=== PATIENT | male | born 1985 | race Caucasian/White ===

== ENCOUNTER 2018-09-20 10:09 | Day surgery (SDC) | payer BC, OTHER ==
[2018-09-19 08:22] VITALS: BMI 29.2
--- NOTE | 2018-09-20 10:38 | HP ---
History & Physical Update - History History: No Change - Physical Physical: No Change - Assessment Assessment: No Change - Plan Plan: No Change (H & P done on 09/13/18)
[2018-09-20] MEDS ORDERED: BUPIVACAINE HCL/PF 0.5% (5MG/ML) 10 ML VIAL ONE (12:04)
[2018-09-20] MEDS ORDERED: PROPOFOL 20 ML ONE ×2 (12:05→12:33)
[2018-09-20] MEDS ORDERED: MIDAZOLAM HCL 2 MG/2 ML SINGLE DOSE VIAL ONE ×2 (12:05)
[2018-09-20] MEDS ORDERED: ISOSULFAN BLUE 10 MG/ML VIAL SQ ONE (12:30)
[2018-09-20] MEDS ORDERED: ceFAZolin SODIUM 1 GM VIAL ONE (12:40)
[2018-09-20] MEDS ORDERED: ceFAZolin SODIUM 1 GM VIAL IVPB ONE (12:41)
--- NOTE | 2018-09-20 13:44 | OP ---
Operative Note - Note: Operative Date: 09/20/18 Pre-Operative Diagnosis: Pilonidal cyst Operation: Excision of pilonidal cyst Findings: multiple hair pits with one pit containing old hair Post-Operative Diagnosis: Same as Pre-op Surgeon: Jordi Monk Anesthesia: Spinal Specimens Removed: pilonidal cyst Estimated Blood Loss (mls): 5 Operative Report Dictated: Yes
--- NOTE | 2018-09-20 14:08 | OP ---
DATE OF OPERATION: 09/20/2018 PROCEDURE: Excision of pilonidal cyst. PREOPERATIVE DIAGNOSIS: Pilonidal cyst. POSTOPERATIVE DIAGNOSIS: Pilonidal cyst. SURGEON: Jordi Monk MD ANESTHESIA: Spinal. FINDINGS ON PROCEDURE: This is a 33-year-old male who presents with 1-year history of intermittent drainage from pilonidal sinus of the intergluteal fold or aubrie cleft. On initial physical examination, patient has 3 sinuses with uppermost sinus draining seropurulent material. Patient was treated with antibiotics for every episode with temporary relief. So, patient was advised excision of the pilonidal cyst, and consent was obtained after discussing the risks, benefits, and alternatives of the procedure. DESCRIPTION OF PROCEDURE: Patient was brought to the operating room and placed in sitting position. Spinal anesthesia was administered. Patient was then placed in prone position. The operative site was prepped and draped in the usual sterile fashion. The upper and lowermost sinuses were injected with isosulfan blue dye. Using the probe, the lower most sinus was explored, and the tract was noted to direct upwards. The upper most sinus was also probed and was noted to end in a blind tract to the left of the midline. The middle sinus was noted to be obliterated. Afterwards a 5 x 2 cm elliptical incision incorporating the 3 sinuses was made using scalpel blade No. 15. Dissection was carried down towards the deep subcutaneous tissue using the Bovie cautery incorporating the cavity of the pilonidal cyst. The recently infected sinus was noted to contain old hair. After the whole cavity was excised, the specimen was inspected, and the inked cavity was inspected and was noted to be communicating with the upper sinus. The wound was then copiously irrigated with sterile normal saline until the return was clear. A Anthony-Khan No. 7 drain was deployed and exited via separate stab wound and connected to bulb suction. The wound was closed with interrupted nylon 3-0 sutures in vertical mattress fashion. The wound was covered with Xeroform gauze and sterile dressing. Patient was placed in supine position and transferred to the post-anesthesia care unit in satisfactory condition. ESTIMATED BLOOD LOSS: About 5 mL. WOUND CLASS: Clean contaminated. The patient received a gram of Ancef prior to the start of the procedure.. Shanita [id number] MTDD
[2018-09-20] MEDS ORDERED: oxyCODONE HCL 5 MG TABLET PO PRN (14:18)
[2018-09-20] MEDS ORDERED: ONDANSETRON 4 MG/2 ML VIAL IVPUSH PRN (14:18)
[2018-09-20] MEDS ORDERED: LACTATED RINGERS SOLUTION 1,000 ML IV SCH (14:30)
[2018-09-20 15:13] VITALS: TEMP 97.6
[2018-09-20 16:20] VITALS: PULSE 74
[2018-09-20 16:25] VITALS: BP 112/54
--- NOTE | 2018-09-24 14:27 | PATH ---
Surgical Pathology Report Patient Name: RAMON CABELLO [facility]. Rec. #: [id number] /Age/Gender: 1985 (Age: 33) / F Account: [id number] Location: [facility] SURGICAL Taken: 09/20/2018 Received: 09/23/2018 Reported: 09/24/2018 Physicians: Jordi Monk M.D. Specimen(s) Received PILONIDAL CYST Clinical History Pilonidal cyst Final Diagnosis PILONIDAL CYST, EXCISION: INFLAMED PILONIDAL CYST. Electronically Signed Geneva Caldera M.D. Gross Description Received in formalin, labeled "pilonidal cyst" is a segment of skin (3.5 x 0.7cm) with subcutaneous tissue (3.5 x 2.2 x 2.0cm). The skin surface is unremarkable. The resection margin is inked blue. The specimen is serially sectioned and shows focal hemorrhage in the dermis. Manager Family sections are submitted in 3 cassettes. EMILY/09/23/2018 roselia/09/23/2018
== END 2018-09-20 16:15 | disposition home or self-care (01) ==
LOC: JASU-SURG 10:09 → EDSEX 12:30 → JASU-SURG 16:15
PROVIDERS: ATTEND Surgery
PROC: 0JB90ZZ Excision of Buttock Subcutaneous Tissue and Fascia, Open Approach (ICD-10-PCS; principal; 2018-09-20 11:00)
DX: L05.91 Pilonidal cyst without abscess (principal)
CPT/HCPCS: 88304-TC; 94760